=== PATIENT | male | born 1950 | race Caucasian/White ===

== ENCOUNTER 2023-07-02 20:30 | Inpatient (IN) | payer MEDICARE, BC, SELFPAY ==
[2023-07-02 15:57] VITALS: BP 137/82
--- NOTE | 2023-07-02 16:28 | ED.GENMED ---
History of Present Illness
General
Chief Complaint: Throat Problem
Time Seen by Provider: 07/02/23 16:28
Travel History
Have you had any contact with someone who has COVID-19?: No
Do you have any symptoms of coronavirus? Fever > 100 degrees, chills, cough, shortness of breath, sore throat, loss of taste or smell, muscle aches, or headache?: No
History of Present Illness
History of Present Illness:
HPI: Patient was eating a mandrin orange and feels that it got stuck. He has a history of esophageal cancer with gastric pull-through in 2010. He had chemo and radiation with anastomotic stricture. Today he continues to have trouble taking
anything orally. The daughter states that anytime the patient tried to take anything by mouth he seemed to be choking. He had been doing very poorly at home and came in here for further evaluation. Daughter tells me that in the past Dr. Jean
performed endoscopy on him.
EXAM:
GENERAL: The patient appears somewhat weak and debilitated
HEENT: Slightly dry oral mucosa
CARDIOVASCULAR: No murmurs, normal heart rate and rhythm, No chest wall tenderness
PULMONARY: No respiratory distress, breath sounds are clear and equal
ABDOMEN: Soft with no peritoneal signs, no tenderness
NEUROLOGIC: Excellent strength all extremities, no coordination deficits
PSYCHIATRIC: Appropriate mental status, normal insight and judgement
EXTREMITIES: Nontender, no edema, moves all extremities equally
SKIN: No rash, no lesions
TIME OF INITIAL ENCOUNTER: 4:30 PM
NUMBER AND COMPLEXITY OF PROBLEMS ADDRESSED AT THE ENCOUNTER
� Chronic conditions affecting care: Has had esophageal stricture/esophageal cancer with gastric pull-through
� Acute Exacerbation and/or Progression of Chronic Illness: This is an acute but recurring problem
� Differential Diagnosis includes: Esophageal stricture, esophageal food bolus
AMOUNT AND/OR COMPLEXITY OF DATA TO BE REVIEWED AND ANALYZED
� I performed an independent evaluation of and my interpretation is:
EKG:
CT:
X-rays:
Laboratory Studies: Other than mild anemia, chemistries and CBC are relatively unremarkable
Other:
� Review of other/old records: Endoscopy report from 02/18/2023�moderate stenosis was noted at that time and he was dilated (Dr. Jean)
� Clinical information was obtained by an independent historian: I spoke to the daughter at bedside
� Prescriptions/Medications Considered but not given:
� Further testing considered but not performed:
RISK OF COMPLICATIONS AND/OR MORBIDITY OR MORTALITY OF PATIENT MANAGEMENT
� Social determinants of health affecting care: Lives at home
� Discussion with other providers: I initially discussed case with Dr. Boykin, we tried glucagon as the patient was clearing his secretions however on reassessment he still was unable to tolerate even a small sip of water. He has
a sensation that was still getting stuck. Dr. Boykin recommends: Strict n.p.o., medical admission, and they would likely perform endoscopy in the morning. Hospitalist for admission at 7:15 PM.
� Escalation of care including admission/observation vs risk of discharge considered: The patient was given IV fluids for rehydration as he was for the most part kept NPO. With small trials of sips of water, he could not
tolerate these. Since he is clearing his secretions, will try glucagon but this did not help much.
Past History
Past History
ED Past Medical History: Cancer; Negative Fibromyalgia or Hypercholesterolemia
ED Past Surgical History: Other (Surgery for esophageal cancer); Negative Cardiac
Social History
Tobacco: Non-smoker
Alcohol: None
Drug: None
Personal:
Living: with family
Employment: Not employed
Family History
Family History: Hypertension
Phy Exam
Physical Exam
Physical Exam:
See HPI
Course
Orders/Labs/Results
Orders:
Orders
07/02/23 16:45
0.9% Sodium Chloride 500 ml [Nss] 500 ml IV BOLUS
Glucagon [GlucaGen] 1 mg IV NOW STA
Ondansetron Injectable [Zofran] 4 mg IV NOW STA
07/02/23 17:08
Basic Metabolic Panel Urgent
Complete Blood Count/With Diff Urgent
Abnormal Lab Results
07/02/23
17:08
RBC 3.72 L 10^6/uL
(4.70-6.10)
Hgb 11.3 L g/dL
(13.0-18.0)
Hct 33.1 L %
(39.0-52.0)
RDW 15.3 H %
(11.5-14.5)
Abs Immat Gran (auto) 0.1 H 10^3/uL
(0-0.05)
Absolute Neuts (auto) 8.7 H 10^3/uL
(1.4-6.5)
Absolute Lymphs (auto) 0.5 L 10^3/uL
(1.2-3.4)
Neutrophils % 87.7 H %
(42.2-75.2)
Lymphocytes % 4.9 L %
(20.5-51.1)
BUN 21 H mg/dl
(9-20)
Glucose 124 H mg/dl
(70-99)
07/02/23 17:08
07/02/23 17:08
Vital Signs
Initial and Last Documented VS:
Initial Vital Signs
Temp Pulse Resp BP Pulse Ox
97.9 F 89 18 137/82 93
07/02/23 15:57 07/02/23 15:57 07/02/23 15:57 07/02/23 15:57 07/02/23 15:57
Last Documented Vital Signs
Temp Pulse Resp BP Pulse Ox
97.9 F 68 16 149/76 96
07/02/23 15:57 07/02/23 17:42 07/02/23 17:42 07/02/23 17:42 07/02/23 17:42
*Critical Care Note
Total Time (30-74mins, 75-104mins- exclusive of procedures): Not Applicable
ED Attending Note
-
Portions of this chart may have been created with voice recognition software.� Occasional wrong word or��sound alike� substitutions may have occurred due to the inherent limitations of voice recognition software.
Discharge Plan
Departure
Patient Disposition: Admit
Date of Disposition: 07/02/23
Time of Disposition: 19:22
Presentation/result/management discussed w/ accepting MD/: Hospitalist
Discharge Problem:
Dysphagia
Prescriptions:
No Action
risperidone 0.5 mg Tablet
1 mg PO HS Qty: 0
cholecalciferol (vitamin D3) [Vitamin D3] 25 mcg (1,000 unit) Tablet
25 mcg PO DAILY
omeprazole 40 mg capsule,delayed release(DR/EC)
40 mg PO DAILY
sertraline 50 mg tablet
50 mg PO HS
Referrals:
Jammie Jean MD [Family Provider] -
Interventions
Interventions:
*Risk Screen - Suicide Last Done: 07/02/23 15:57
*General Assessment Last Done: 07/02/23 15:57
*Neglect/Abuse Screening Last Done: 07/02/23 15:57
ED- Fall Risk Assessment Last Done: 07/02/23 17:22
*ED COVID-19 Vaccine History Last Done: 07/02/23 17:22
ED-EENT Assessment Last Done: 07/02/23 17:21
ED- Pulmonary Assessment Last Done: 07/02/23 17:21
[2023-07-02] MEDS: GlucaGen 1 MG IV (17:08)
[2023-07-02] MEDS: ZOFRAN 4 MG IV (17:08)
[2023-07-02] MEDS: NSS 500 IV (17:09)
[2023-07-02 17:27] LABS: % Basophils 0.5 % (0-2); % Eosinophils 0.2 % (0-6); % Immature Granulocytes 0.5 % (0-0.5); % Lymphocytes 4.9 % (20.5-51.1); % Monocytes 6.2 % (1.7-9.3); % Neutrophils 87.7 % (42.2-75.2); Absolute Basophils 0.1 10^3/uL (0-0.2); Absolute Immature Granulocytes 0.1 10^3/uL (0-0.05); Absolute Lymphocytes 0.5 10^3/uL (1.2-3.4); Absolute Monocytes 0.6 10^3/uL (0.1-0.6); Absolute Neutrophils 8.7 10^3/uL (1.4-6.5); Hematocrit 33.1 % (39.0-52.0); Hemoglobin 11.3 g/dL (13.0-18.0); Mean Corp Hgb Conc. 34.1 g/dL (33.0-37.0); Mean Corpuscular Hgb 30.4 pg (27.0-31.0); Mean Platelet Volume 9.6 fL (7.4-10.4); Nucleated Red Blood Cells % 0 % (-); Platelet Count 246 10^3/uL (130-400); Red Blood Cell Count 3.72 10^6/uL (4.70-6.10); Red Cell Dist. Width 15.3 % (11.5-14.5); White Blood Cell Count 9.9 10^3/uL (4.8-10.8)
[2023-07-02 17:39] LABS: Blood Urea Nitrogen 21 mg/dl (9-20); Calcium 9.5 mg/dl (8.4-10.2); Carbon Dioxide 26 mmol/L (22-30); Chloride 103 mmol/L (98-107); Glucose 124 mg/dl (70-99); Potassium 3.9 mmol/L (3.5-5.1); Sodium 135 mmol/L (135-145); eGFR > 60.00
[2023-07-02 17:42] VITALS: BP 149/76
--- NOTE | 2023-07-02 19:54 | HPS.HSE ---
Addendum entered and electronically signed by Sang Khalil DO 07/02/23 20:55:
Patient seen and examined independently. Agree with findings and plan as set forth by Crista Candelario PA-C.
Patient is a 73y M with PMH significant for esophageal cancer s/p esophagectomy who presents to ED complaining of difficulty swallowing. Patient has prior history of stricture and dysphagia with food impaction requiring EGD / dilation / foreign
body retrieval. He states that he got a piece of orange stuck in his throat a few days ago. He did not eat or drink for about 24 hours and his discomfort gradually improved. Today he tried to eat a sandwich and noted significant increase in
discomfort and difficulty swallowing even oral secretions.
Patient presented to the ED for further evaluation. He was treated with glucagon and his symptoms have improved somewhat. He has no dyspnea / respiratory distress. He is now able to manage his own oral secretions.
Ass:
Dysphagia
Esophageal Stricture
Esophageal Cancer s/p Esophagectomy / Pull-Through
GERD
Colon Cancer
Renal Cell Cancer
Plan:
Admit for further evaluation and treatment.
Monitor overnight for any new / worsening symptoms.
NPO, IVFs, supportive care.
GI evaluation for EGD in the AM for possible foreign body removal +/- dilation if needed.
Original Note:
Family Physician
-
Family Physician: Jammie Tobar Do, MD
Chief Complaint
-
Difficulty Swallowing
History of Present Illness
Patient is a 73 y/o male with PMH of esophageal, colon, and renal cancer who presents to the ED today complaining of dysphagia. Patient says he ate an orange a few days ago and felt like 'it didn't go down'. He only drank water for 1-2 days, then
this morning he was able to get down coffee and then tried to eat a sandwich which he threw up. He admits to recent weight loss but is unsure how much he has lost. He says he had pneumonia 1.5 weeks ago and was treated with antibiotics. He denies
abdominal pain and hematemesis.
Medical History
Past Medical History
Past Medical History: Reports Other
Additional Past Medical History:
Esophageal Cancer
Esophageal Stricture
Colon Cancer
Renal Cell Carcinoma
Depression
Past Surgical History: Reports Other
Additional Past Surgical History:
Esophagectomy
Esophageal Dilation
Right Hemioclectomy
Right Nephrectomy
Hernia Repair
Social History
Tobacco: Non-smoker
Alcohol: None
Family History
Family History: Not pertinent
Allergies / Home Medications
Allergies reflects when Allergies were last updated in [facility].
Home Medications with original date entered in [facility]
Allergy/Medication List:
Allergies
Allergy/AdvReac Type Severity Reaction Status Date / Time
lactose [Lactose] Allergy INTOLERANT Verified 07/02/23 15:57
meperidine HCl [From Demerol] Allergy Swelling Verified 07/02/23 15:57
Home Medications
risperidone 0.5 mg tablet 1 mg PO HS ##0 10/20/11
cholecalciferol (vitamin D3) 25 mcg (1,000 unit) tablet (Vitamin D3) 25 mcg PO DAILY 04/25/22
omeprazole 40 mg capsule,delayed release 40 mg PO DAILY 07/02/23
sertraline 50 mg tablet 50 mg PO HS 07/02/23
Review of Systems
-
A 12 point ROS was completed and negative except as noted: Yes
Constitutional: Reports Weight Loss; Denies Fever or Chills
Respiratory: Denies Cough or Trouble Breathing
Cardiac: Denies Chest Pain or Palpitations
Abdomen/GI: Reports See HPI
Physical Exam
Vital Signs
Vital Signs
Temp Pulse Resp BP Pulse Ox
97.9 F 68 16 149/76 96
07/02/23 15:57 07/02/23 17:42 07/02/23 17:42 07/02/23 17:42 07/02/23 17:42
Physical Exam
General: Comfortable and Conversant
HEENT: NormoCephalic and Anicteric
Respiratory: Clear and Non Labored Respirations
Cardiac: S1/S2 and Regular Rhythm
GI: Soft and Non Tender
Rectal: Deferred by Provider
Musculoskeletal: No Clubbing, No Cyanosis and No Edema
Skin: Warm and Dry
Neuro: Awake, Alert, Oriented and Nonfocal/grossly intact
Psych: Calm
Laboratory Results
-
07/02/23 17:08
07/02/23 17:08
Data Reviewed
-
Lab Data: Labs Reviewed by me
Impression/Plan
-
Dysphagia, concern for recurrent Esophageal Stricture
-Consult GI
-Continue NPO/IVFs
-Plan for EGD in AM
GERD
-Continue Protonix
Depression
-Resume oral meds when able to take PO
Other Noted History
-Esophageal Cancer s/p Esophageal Resection with Gastric Pull Through and Chemo-XRT
-Colon Cancer s/p Right Hemicolectomy
-Renal Cell Carcinoma s/p Right Nephrectomy
DVT proph: SCDs
Code Status: Full Code
[2023-07-02] MEDS: NSS 1000 IV (21:40)
[2023-07-02 22:29] VITALS: BP 131/72
[2023-07-02 22:41] VITALS: BMI 17.6
[2023-07-03] VITALS (10 sets, daily range): BP systolic 131–155; BP diastolic 64–79
[2023-07-03 05:46] LABS: Hematocrit 32.3 % (39.0-52.0); Hemoglobin 10.6 g/dL (13.0-18.0); Mean Corp Hgb Conc. 32.8 g/dL (33.0-37.0); Mean Corpuscular Hgb 29.9 pg (27.0-31.0); Mean Platelet Volume 10.2 fL (7.4-10.4); Platelet Count 248 10^3/uL (130-400); Red Blood Cell Count 3.55 10^6/uL (4.70-6.10); Red Cell Dist. Width 15.2 % (11.5-14.5); White Blood Cell Count 11.8 10^3/uL (4.8-10.8)
[2023-07-03 06:07] LABS: Blood Urea Nitrogen 21 mg/dl (9-20); Calcium 9.4 mg/dl (8.4-10.2); Carbon Dioxide 25 mmol/L (22-30); Chloride 105 mmol/L (98-107); Estimated Creatinine Clearance 46 ml/min; Glucose 83 mg/dl (70-99); Magnesium 2.2 mg/dl (1.6-2.3); Potassium 4.4 mmol/L (3.5-5.1); Sodium 135 mmol/L (135-145); eGFR > 60.00
[2023-07-03 06:38] LABS: TSH Reflex To Free T4 1.56 uIU/ml (0.47-4.68)
--- NOTE | 2023-07-03 08:23 | CON.GI ---
Consultation
-
Date/Time Consultation Requested: 07/02/232107
Date/Time Consultation Performed: 07/03/23 0802
Requesting Provider: TARAS Hollins
Performing Provider: Dr. Boykin/HAMMAD Sheehan
Reason for Consultation: dysphagia
Medical History
Chief Complaint / HPI
Chief Complaint: dysphagia
History of Present Illness:
73yo M with a history of stage III esophageal cancer diagnosed 2010 s/p resection with gastric pull through s/p chemo/XRT, prior food impactions with removal, esophageal stenosis requiring dilatation and colon cancer s/p R hemicolectomy presents to
the ER with acute onset of dysphagia after eating mandarin orange, we are asked to evaluate for the same.� The patient states that yesterday he was eating a mandrin orange approximately mid afternoon and he states that after completion of this he
felt as if it did not go down completely. He states that he tried to drink some water and this would go down a little bit. A little bit later he ate a bite of a chicken farm sandwich and this promptly came up. He was able to tolerate his
secretions. He tried to drink some more liquids a little later however this promptly came up as well. He tried to take some medications which were antibiotics and those promptly came up as well. The patient was recently treated at [facility] for
pneumonia. The patient had a cough recently. He states that he is no longer coughing. He denies any recent fevers, chills, nausea, vomiting, melena, hematochezia, odynophagia, early satiety. He states he may have lost a little bit of weight but
has unsure of this. He follows with Dr. Bowling routinely for his history of cancer in the past. He states he is up-to-date for his routine exams. At the present time he is tolerating secretions and he is in no distress.�
Past Medical History
Past Medical History: Cancer (colon ca, stage 3 esophageal ca 2010 s/p resection, gastric pull-through status post chemo and radiation, colorectal cancer status post right hemicolectomy 2010, right renal cancer s/p resection)
Past Surgical History: Other (esophageal resection, R hemicolectomy, R renal CA resection)
Social History
Tobacco: Non-Smoker
Alcohol: None
Drug: None
Personal:
Living: With Family
Employment: Retired
Family History
Family History: Adopted
Allergies / Home Medications
Allergy/AdvReac Type Severity Reaction Status Date / Time
lactose [Lactose] Allergy INTOLERANT Verified 07/02/23 15:57
meperidine HCl [From Demerol] Allergy Swelling Verified 07/02/23 15:57
Medication Instructions Recorded
risperidone 0.5 mg tablet 1 mg PO HS ##0 10/20/11
cholecalciferol (vitamin D3) 25 25 mcg PO DAILY 04/25/22
mcg (1,000 unit) tablet (Vitamin
D3)
omeprazole 40 mg capsule,delayed 40 mg PO DAILY 07/02/23
release
sertraline 50 mg tablet 50 mg PO HS 07/02/23
Review of Systems
-
All other systems: A 12 pt ROS was Negative except as stated above in HPI
Vital Signs
Temp Pulse Resp BP Pulse Ox
97.9 F 65 16 131/72 98
07/02/23 15:57 07/02/23 22:30 07/02/23 22:30 07/02/23 22:29 07/02/23 22:30
Physical Exam
Exam
General: No Apparent Distress
HEENT: Anicteric and Other (tolerating secretions)
Respiratory: Rhonchi (B/L)
Cardiac: Regular Rhythm
GI: Soft, Non Tender, Non Distended and Normal Bowel Sounds
Musculoskeletal: No Edema
Skin: Warm and Dry
Neuro: AO x 3 (seems forgetful at times)
Psych: Calm
Results
WBC 11.8 10^3/uL (4.8-10.8) H 07/03/23 05:23
Hgb 10.6 g/dL (13.0-18.0) L 07/03/23 05:23
Hct 32.3 % (39.0-52.0) L 07/03/23 05:23
MCV 91.0 fL (80.0-94.0) 07/03/23 05:23
Plt Count 248 10^3/uL (130-400) 07/03/23 05:23
Absolute Neuts (auto) 8.7 10^3/uL (1.4-6.5) H 07/02/23 17:08
Sodium 135 mmol/L (135-145) 07/03/23 05:23
Potassium 4.4 mmol/L (3.5-5.1) 07/03/23 05:23
Chloride 105 mmol/L (98-107) 07/03/23 05:23
Carbon Dioxide 25 mmol/L (22-30) 07/03/23 05:23
BUN 21 mg/dl (9-20) H 07/03/23 05:23
Creatinine 1.1 mg/dL (0.7-1.3) 07/03/23 05:23
Calcium 9.4 mg/dl (8.4-10.2) 07/03/23 05:23
Diagnostic Image Results:
none
Prior GI Procedures:
EGD 02/18/23 �- Benign-appearing esophageal stenosis seen at 22cm
�� � � � � � � � � � � from incisors. Dilated to 12 and 13.5mm balloon.
�� � � � � � � � � � � - Esophageal diverticulum.
�� � � � � � � � � � � - Erythematous mucosa in the stomach. Biopsied.
�� � � � � � � � � � � - Normal examined duodenum.
EGD 09/19/22 (Do) - An esophago-gastric anastomosis was found. Dilated.
�� � � � � � � � � � � - Two large diverticulum at the esophageal anastomosis
�� � � � � � � � � � � with scant food residue retained.
�� � � � � � � � � � � - Erythematous mucosa in the stomach. Biopsied.
�� � � � � � � � � � � - Normal examined duodenum. Biopsied.
EGD 04/25/22 (Steve) - A mild esophago-gastric anastomotic stricture was
�� � � � � � � � � � � found. Dilated.
�� � � � � � � � � � � - Erythematous mucosa in the gastric body and antrum.
�� � � � � � � � � � � - A single duodenal polyp. Resected and retrieved.
�� � � � � � � � � � � Clip was placed. Clip vice president marketing & development: [employer].
�� � � � � � � � � � � - Mucosal resection was performed. Resection and
�� � � � � � � � � � � retrieval were complete.
EGD: 03/29/22 () �� - 2 large bilateral diverticulum in the distal
�� � � � � � � � � � � esophagus at 20cm from incisors.
�� � � � � � � � � � � - Esophageal stenosis at incisors. Dilated using TTS
�� � � � � � � � � � � dilator balloon 8-9-10mm. Biopsied.
�� � � � � � � � � � � - Smaller post surgical stomach seen.
�� � � � � � � � � � � - Erythematous mucosa in the stomach. Biopsied.
�� � � � � � � � � � � - A single 15mm duodenal polyp in duodenal bulb.
�� � � � � � � � � � � Biopsied.
�� � � � � � � � � � � - Scalloped mucosa was found in the duodenum,
�� � � � � � � � � � � suspicious for celiac disease. Biopsied.
colonoscopy performed in July of 2018, which
per patient, was normal without signs of cancer recurrence. This
report is not available for my review at this time. (Per Dr. Jean note)
2015, he had an EGD by Dr. Christine, which showed a benign appearing
esophageal stricture at 25-24 cm from the incisors. There was a
diverticulum on each side of the anastomosis. Through the scope
dilation was done 12-13.5 to 15 mm of the anastomotic stricture.
�[address] Yane jimenez colon prep, colonic anastomosis normal appearing
Assessment / Plan
-
73yo M with a history of stage III esophageal cancer diagnosed 2010 s/p resection with gastric pull through s/p chemo/XRT, prior food impactions with removal, esophageal stenosis requiring dilatation and colon cancer s/p R hemicolectomy presents to
the ER with acute onset of dysphagia after eating mandarin orange, we are asked to evaluate for the same.
Impression:
Dysphagia, likely secondary to food impaction from mandrin orange
Esophageal stenosis with last EGD in01/2023 showing benign appearing stenosis at 22 cmfrom incisors. Dilated to 12 and 13.5mm balloon as well as Esophageal diverticulum
Recent pneumonia, with current rhonchi bilaterally, patient without any current distress or need for oxygen, O2 sat 98% with respirations at 16
Plan:
-Obtain chest x-ray
-Plan on EGD today
-Continue pantoprazole IV
-Continue IV fluids as patient n.p.o.
-Further recommendations to be forthcoming
Data Reviewed
-
Old Records: Reviewed
-
-
Thank you for consultation and allowing me to participate in the patient's care. Please call the urology surgeon GI physician during the after hours with any questions or concerns.
[2023-07-03] MEDS: NSS (PRESERVATIVE FREE) 10 ML IV (08:32)
[2023-07-03] MEDS: PROTONIX IV 40 MG IV (08:33)
[2023-07-03] MEDS: DUONEB 3 ML INH (08:39)
[2023-07-03] MEDS: NSS 1000 IV (12:51)
--- NOTE | 2023-07-03 13:15 | SUR.PHASEI ---
patient comfortable, alert in pacu - seems slow to comprehend, Dr Boykin visits and explains plan of care, - Daughter called at patient's request and updated on status and room number
--- NOTE | 2023-07-03 13:33 | W.PN.HOSP.TC ---
Today's Communication/Plan
-
Monitor vital signs see plan
EGD today
Assessment / Plan
Assessment / Plan
General: Comfortable and Conversant
HEENT: NormoCephalic and Anicteric
Respiratory: Clear and Non Labored Respirations
Cardiac: S1/S2 and Regular Rhythm
GI: Soft and Non Tender
Musculoskeletal: No Edema
Neuro: Awake, Alert, Oriented and Nonfocal/grossly intact
Psych: Calm
Dysphagia, concern for recurrent Esophageal Stricture
-GI following, EGD today
monitor leukocytosis
GERD
-Continue Protonix
Depression
-Resume oral meds when able to take PO
Other Noted History
-Esophageal Cancer s/p Esophageal Resection with Gastric Pull Through and Chemo-XRT
-Colon Cancer s/p Right Hemicolectomy
-Renal Cell Carcinoma s/p Right Nephrectomy
DVT proph: SCDs
Code Status: Full Code
Anticipated Discharge: Within 24 hours
Subjective/Interval History
-
Date of Service: July 03, 2023
denies pain
Objective Data
-
Labs:
Laboratory Results
07/03/23
05:23
WBC 11.8 H
Hgb 10.6 L
Hct 32.3 L
Plt Count 248
Sodium 135
Potassium 4.4
Chloride 105
Carbon Dioxide 25
BUN 21 H
Creatinine 1.1
Glucose 83
Calcium 9.4
Vital Signs:
Vital Signs
Temp Pulse Resp BP Pulse Ox
98.8 F 66 26 137/68 97
07/03/23 13:00 07/03/23 13:00 07/03/23 13:00 07/03/23 13:00 07/03/23 13:00
I&O
07/02/23 07/03/2324
06:59 06:59 06:59
Intake Total 100 / 100
Balance 100 / 100
--- NOTE | 2023-07-03 13:36 | SUR.PHASEI ---
discharge to [address], patient able to walk from stretcher to bed with minimal assistance, steady gait. continues with harsh nonproductive loose cough. still in clothes from home, patient belonging bag in room from ED. Daughter - Johanna updated
by phone.
[2023-07-03] MEDS: RISPERDAL 1 MG PO (20:59)
[2023-07-03] MEDS: ZOLOFT 50 MG PO (20:59)
[2023-07-04] MEDS: NSS IV (02:50)
[2023-07-04 07:00] VITALS: BP 146/78
[2023-07-04 07:21] LABS: % Basophils 0.7 % (0-2); % Eosinophils 1.8 % (0-6); % Immature Granulocytes 0.8 % (0-0.5); % Lymphocytes 9.4 % (20.5-51.1); % Neutrophils 79.3 % (42.2-75.2); Absolute Basophils 0.1 10^3/uL (0-0.2); Absolute Eosinophils 0.1 10^3/uL (0-0.7); Absolute Immature Granulocytes 0.1 10^3/uL (0-0.05); Absolute Lymphocytes 0.7 10^3/uL (1.2-3.4); Absolute Monocytes 0.6 10^3/uL (0.1-0.6); Absolute Neutrophils 5.9 10^3/uL (1.4-6.5); Hematocrit 31.1 % (39.0-52.0); Hemoglobin 10.5 g/dL (13.0-18.0); Mean Corp Hgb Conc. 33.8 g/dL (33.0-37.0); Mean Corpuscular Volume 88.9 fL (80.0-94.0); Mean Platelet Volume 10.7 fL (7.4-10.4); Nucleated Red Blood Cells % 0 % (-); Platelet Count 242 10^3/uL (130-400); Red Cell Dist. Width 15.1 % (11.5-14.5); White Blood Cell Count 7.4 10^3/uL (4.8-10.8)
[2023-07-04 07:34] LABS: Blood Urea Nitrogen 14 mg/dl (9-20); Calcium 8.6 mg/dl (8.4-10.2); Carbon Dioxide 23 mmol/L (22-30); Chloride 108 mmol/L (98-107); Estimated Creatinine Clearance 50 ml/min; Glucose 85 mg/dl (70-99); Potassium 3.9 mmol/L (3.5-5.1); Sodium 133 mmol/L (135-145); eGFR > 60.00
[2023-07-04] MEDS: VITAMIN D3 (cholecalciferol) 25 MCG PO (07:56)
[2023-07-04] MEDS: PROTONIX IV 40 MG IV (07:56)
[2023-07-04] MEDS: NSS (PRESERVATIVE FREE) 10 ML IV (07:57)
--- NOTE | 2023-07-04 09:58 | W.PN.HOSP.TC ---
Today's Communication/Plan
-
Monitor vital signs see plan
Discharge today
do not eat roughage-fibrous foods will likely get stuck at the anastomosis site. Eat majority liquids and soft foods
Time of discharge 36 minutes
Assessment / Plan
Assessment / Plan
General: Comfortable and Conversant
HEENT: NormoCephalic and Anicteric
Respiratory: Clear and Non Labored Respirations
Cardiac: S1/S2 and Regular Rhythm
GI: Soft and Non Tender
Musculoskeletal: No Edema
Neuro: Awake, Alert, Oriented and Nonfocal/grossly intact
Psych: Calm
Dysphagia, concern for recurrent Esophageal Stricture
-GI following, EGD 07/02 with food in the upper third of the esophagus nearly inside the diverticulum and impacted at the anastomosis site. Status post food disimpaction. Status post dilation esophageal gastric anastomosis. Started on liquid diet
per GI. Per GI do not eat roughage-fibrous foods will likely get stuck at the anastomosis site. Eat majority liquids and soft foods, follow-up with GI outpatient
monitor leukocytosis
Mild hyponatremia
Monitor
GERD
-Continue Protonix
Depression
-Resume oral meds
Other Noted History
-Esophageal Cancer s/p Esophageal Resection with Gastric Pull Through and Chemo-XRT
-Colon Cancer s/p Right Hemicolectomy
-Renal Cell Carcinoma s/p Right Nephrectomy
DVT proph: SCDs
Code Status: Full Code
Anticipated Discharge: Today
Subjective/Interval History
-
Date of Service: July 04, 2023
Denies pain
Objective Data
-
Labs:
Laboratory Results
07/04/23
06:25
WBC 7.4
Hgb 10.5 L
Hct 31.1 L
Plt Count 242
Sodium 133 L
Potassium 3.9
Chloride 108 H
Carbon Dioxide 23
BUN 14
Creatinine 1.0
Glucose 85
Calcium 8.6
Vital Signs:
Vital Signs
Temp Pulse Resp BP Pulse Ox
97.9 F 60 16 146/78 98
07/04/23 07:00 07/04/23 07:00 07/04/23 07:00 07/04/23 07:00 07/04/23 07:00
I&O
07/03/23 07/04/23 07/05/23
06:59 06:59 06:59
Intake Total 300 / 300
Balance 300 / 300
--- NOTE | 2023-07-04 10:02 | W.DCSUMMARY ---
Discharge Summary
Discharge Data
Date of Admission: 07/02/23
Date of Discharge: 07/04/23
-
Pending Results: No
Hospital Course
73-year-old male with past medical history of esophageal stricture, GERD, depression, esophageal cancer status post esophageal resection, colon cancer, renal cell carcinoma came to the hospital with dysphagia with food impaction. Patient underwent
EGD for disimpaction. Patient also had dilation of the esophageal gastric anastomosis. GI recommended patient to continue with liquid diet and to avoid roughage-fibrous foods. GI recommended patient to follow-up with them outpatient. Once
patient was able to tolerate diet and was feeling better, he was then discharged home with instructions to follow-up with all his physicians outpatient.
Discharge Plan
-
Patient Disposition: Home (Routine Discharge)
Discharge Diagnosis/Procedures: Food impaction in esophagus status post dilation of anastomosis site
Mild hyponatremia
Diet: Other diet
Additional Diets: do not eat roughage-fibrous foods will likely get stuck at the anastomosis site. Eat majority liquids and soft foods
Activity: As tolerated
Driving Restrictions: As prior to admission
Bathing Restrictions: None
Activity Restrictions/Additional Instructions:
Follow-up with your primary care provider within a week outpatient
Referrals:
Jammie Jean MD [Family Provider] - 09/03/23 11:30 am
Prescriptions:
Continued
risperidone 0.5 mg Tablet
1 mg PO HS Qty: 0
cholecalciferol (vitamin D3) [Vitamin D3] 25 mcg (1,000 unit) Tablet
25 mcg PO DAILY
omeprazole 40 mg capsule,delayed release(DR/EC)
40 mg PO DAILY
sertraline 50 mg tablet
50 mg PO HS
Discharge Orders:
Discharge Patient (As Directed); Ordered 07/04/23
Ordered By: Nahid Abdalla
Discharge Date and Time
Discharge Date/Time: 07/04/23 13:40
[2023-07-04 14:00] VITALS: BP 100/66
== END 2023-07-04 13:40 | disposition home or self-care (01) | DRG 394 ==
LOC: 3 WEST ACU 20:30
PROVIDERS: Physician Assistant Medical; ADMITTING PHYSICIAN Hospitalist; ATTENDING PHYSICIAN Internal Medicine; CONSULT PHYSICIAN Internal Medicine; EMERGENCY PHYSICIAN Emergency Medicine; FAMILY PHYSICIAN Internal Medicine Gastroenterology
PROC: 0D758ZZ Dilation of Esophagus, Via Natural or Artificial Opening Endoscopic (ICD-10-PCS; 2023-07-03)
DX: T18.128A Food in esophagus causing other injury, initial encounter (principal); C15.9 Malignant neoplasm of esophagus, unspecified; Q39.6 Congenital diverticulum of esophagus; E87.1 Hypo-osmolality and hyponatremia; K22.2 Esophageal obstruction; K21.9 Gastro-esophageal reflux disease without esophagitis; F32.A Depression, unspecified; W44.F3XA Food entering into or through a natural orifice, initial encounter
CPT/HCPCS: 71046; 80048; 83735; 84443; 85025; 85027; 96361; 96374; 96375; 99284; C1726; J1610

== ENCOUNTER → 2023-07-14 10:02 | Outpatient (REF) | payer MEDICARE, BC, SELFPAY ==
[2023-07-14 10:56] LABS: % Basophils 1.3 % (0-2); % Immature Granulocytes 0.5 % (0-0.5); % Lymphocytes 15.9 % (20.5-51.1); % Neutrophils 75.3 % (42.2-75.2); Absolute Basophils 0.1 10^3/uL (0-0.2); Absolute Eosinophils 0.1 10^3/uL (0-0.7); Absolute Lymphocytes 0.9 10^3/uL (1.2-3.4); Absolute Monocytes 0.3 10^3/uL (0.1-0.6); Absolute Neutrophils 4.2 10^3/uL (1.4-6.5); Hematocrit 37.1 % (39.0-52.0); Hemoglobin 11.8 g/dL (13.0-18.0); Mean Corp Hgb Conc. 31.8 g/dL (33.0-37.0); Mean Corpuscular Hgb 29.4 pg (27.0-31.0); Mean Corpuscular Volume 92.5 fL (80.0-94.0); Nucleated Red Blood Cells % 0 % (-); Platelet Count 313 10^3/uL (130-400); Red Blood Cell Count 4.01 10^6/uL (4.70-6.10); Red Cell Dist. Width 15.3 % (11.5-14.5); White Blood Cell Count 5.6 10^3/uL (4.8-10.8)
[2023-07-14 12:27] LABS: ALT (SGPT) 14 U/L (0-50); AST (SGOT) 20 U/L (17-59); Albumin 3.1 g/dl (3.5-5.0); Alkaline Phosphatase 120 U/L (38-126); Blood Urea Nitrogen 11 mg/dl (9-20); Calcium 9.6 mg/dl (8.4-10.2); Carbon Dioxide 26 mmol/L (22-30); Chloride 103 mmol/L (98-107); Glucose 99 mg/dl (70-99); Potassium 4.1 mmol/L (3.5-5.1); Sodium 135 mmol/L (135-145); Total Bilirubin 1.2 mg/dl (0.2-1.3); Total Protein 5.9 g/dl (6.3-8.2); eGFR 58.01
== END ==
LOC: REG 10:02
PROVIDERS: ATTENDING PHYSICIAN Internal Medicine Hematology & Oncology; FAMILY PHYSICIAN Family Medicine
DX: C18.0 Malignant neoplasm of cecum (principal); C15.5 Malignant neoplasm of lower third of esophagus; D50.0 Iron deficiency anemia secondary to blood loss (chronic); R91.1 Solitary pulmonary nodule
CPT/HCPCS: 36415; 80053; 85025

== ENCOUNTER → 2023-07-17 12:39 | Outpatient (REF) | payer MEDICARE, BC, SELFPAY | LOC: RAD 12:39 | PROVIDERS: ATTENDING PHYSICIAN Internal Medicine Hematology & Oncology | DX: C15.9 Malignant neoplasm of esophagus, unspecified (principal); C64.9 Malignant neoplasm of unspecified kidney, except renal pelvis; C18.9 Malignant neoplasm of colon, unspecified; C18.0 Malignant neoplasm of cecum; C15.5 Malignant neoplasm of lower third of esophagus; D50.0 Iron deficiency anemia secondary to blood loss (chronic); R91.1 Solitary pulmonary nodule | CPT/HCPCS: 71260; 74177; Q9967 ==

== ENCOUNTER → 2023-10-20 13:15 | Outpatient (REF) | payer MEDICARE, BC, SELFPAY ==
[2023-10-20 13:45] LABS: % Basophils 1.1 % (0-2); % Eosinophils 1.2 % (0-6); % Immature Granulocytes 0.5 % (0-0.5); % Lymphocytes 12.6 % (20.5-51.1); % Monocytes 6.4 % (1.7-9.3); % Neutrophils 78.2 % (42.2-75.2); Absolute Basophils 0.1 10^3/uL (0-0.2); Absolute Eosinophils 0.1 10^3/uL (0-0.7); Absolute Lymphocytes 0.8 10^3/uL (1.2-3.4); Absolute Monocytes 0.4 10^3/uL (0.1-0.6); Hematocrit 34.6 % (39.0-52.0); Hemoglobin 11.2 g/dL (13.0-18.0); Mean Corp Hgb Conc. 32.4 g/dL (33.0-37.0); Mean Corpuscular Hgb 28.6 pg (27.0-31.0); Mean Corpuscular Volume 88.3 fL (80.0-94.0); Mean Platelet Volume 9.8 fL (7.4-10.4); Nucleated Red Blood Cells % 0 % (-); Platelet Count 307 10^3/uL (130-400); Red Blood Cell Count 3.92 10^6/uL (4.70-6.10); Red Cell Dist. Width 16.4 % (11.5-14.5); White Blood Cell Count 6.4 10^3/uL (4.8-10.8)
[2023-10-20 14:10] LABS: Iron 52 ug/dl (49-181)
[2023-10-20 14:19] LABS: Percent Saturation 14 % (20-50); Total Iron Binding Capacity 368 ug/dl (261-462)
[2023-10-20 14:45] LABS: Ferritin 14.8 ng/ml (17.9-464.0)
[2023-10-20 15:16] LABS: Folate 4.5 ng/ml (2.76-20); Vitamin B12 396 pg/ml (239-931)
== END ==
LOC: REG 13:15
PROVIDERS: ATTENDING PHYSICIAN Internal Medicine Hematology & Oncology; FAMILY PHYSICIAN Family Medicine
DX: C18.0 Malignant neoplasm of cecum (principal); C15.5 Malignant neoplasm of lower third of esophagus; D50.0 Iron deficiency anemia secondary to blood loss (chronic); R91.1 Solitary pulmonary nodule; Z79.899 Other long term (current) drug therapy
CPT/HCPCS: 36415; 82607; 82728; 82746; 83540; 83550; 85025

== ENCOUNTER → 2023-10-29 06:39 | Day surgery (SDC) | payer MEDICARE, BC, SELFPAY | LOC: GI 06:39 | PROVIDERS: ATTENDING PHYSICIAN Internal Medicine Gastroenterology | DX: R13.10 Dysphagia, unspecified (principal); R12 Heartburn; Z98.0 Intestinal bypass and anastomosis status; K22.2 Esophageal obstruction | CPT/HCPCS: 43249 ==

== ENCOUNTER → 2023-11-03 15:50 | Outpatient (REF) | payer MEDICARE, BC, SELFPAY ==
[2023-11-03 11:49] LABS: % Basophils 0.6 % (0-2); % Eosinophils 0.7 % (0-6); % Immature Granulocytes 0.5 % (0-0.5); % Lymphocytes 10.2 % (20.5-51.1); % Monocytes 6.4 % (1.7-9.3); % Neutrophils 81.6 % (42.2-75.2); Absolute Basophils 0.1 10^3/uL (0-0.2); Absolute Eosinophils 0.1 10^3/uL (0-0.7); Absolute Lymphocytes 0.8 10^3/uL (1.2-3.4); Absolute Monocytes 0.5 10^3/uL (0.1-0.6); Absolute Neutrophils 6.6 10^3/uL (1.4-6.5); Hematocrit 33.6 % (39.0-52.0); Hemoglobin 11.2 g/dL (13.0-18.0); Mean Corp Hgb Conc. 33.3 g/dL (33.0-37.0); Mean Corpuscular Hgb 28.7 pg (27.0-31.0); Mean Corpuscular Volume 86.2 fL (80.0-94.0); Mean Platelet Volume 9.7 fL (7.4-10.4); Nucleated Red Blood Cells % 0 % (-); Platelet Count 295 10^3/uL (130-400); Red Cell Dist. Width 16.7 % (11.5-14.5); White Blood Cell Count 8.1 10^3/uL (4.8-10.8)
[2023-11-03 14:36] LABS: Phosphorus 2.4 mg/dl (2.5-4.5)
== END ==
LOC: OIDL 15:50
PROVIDERS: ATTENDING PHYSICIAN Internal Medicine Hematology & Oncology
DX: C18.0 Malignant neoplasm of cecum (principal)
CPT/HCPCS: 84100; 85025

== ENCOUNTER → 2023-11-17 15:59 | Outpatient (REF) | payer MEDICARE, BC, SELFPAY ==
[2023-11-17 11:55] LABS: % Eosinophils 1.4 % (0-6); % Immature Granulocytes 0.8 % (0-0.5); % Lymphocytes 14.6 % (20.5-51.1); % Monocytes 7.7 % (1.7-9.3); % Neutrophils 74.5 % (42.2-75.2); Absolute Basophils 0.1 10^3/uL (0-0.2); Absolute Eosinophils 0.1 10^3/uL (0-0.7); Absolute Immature Granulocytes 0.1 10^3/uL (0-0.05); Absolute Lymphocytes 0.9 10^3/uL (1.2-3.4); Absolute Monocytes 0.5 10^3/uL (0.1-0.6); Absolute Neutrophils 4.7 10^3/uL (1.4-6.5); Hematocrit 31.4 % (39.0-52.0); Hemoglobin 10.4 g/dL (13.0-18.0); Mean Corp Hgb Conc. 33.1 g/dL (33.0-37.0); Mean Corpuscular Hgb 28.9 pg (27.0-31.0); Mean Corpuscular Volume 87.2 fL (80.0-94.0); Mean Platelet Volume 9.7 fL (7.4-10.4); Nucleated Red Blood Cells % 0 % (-); Platelet Count 296 10^3/uL (130-400); Red Cell Dist. Width 17.2 % (11.5-14.5); White Blood Cell Count 6.2 10^3/uL (4.8-10.8)
[2023-11-17 12:08] LABS: Phosphorus 1.7 mg/dl (2.5-4.5)
== END ==
LOC: OIDL 15:59
PROVIDERS: ATTENDING PHYSICIAN Internal Medicine Hematology & Oncology
DX: C18.0 Malignant neoplasm of cecum (principal)
CPT/HCPCS: 84100; 85025

== ENCOUNTER → 2023-11-27 06:16 | Day surgery (SDC) | payer MEDICARE, BC, SELFPAY | LOC: GI 06:16 | PROVIDERS: ATTENDING PHYSICIAN Internal Medicine Gastroenterology | DX: Z12.11 Encounter for screening for malignant neoplasm of colon (principal); D12.6 Benign neoplasm of colon, unspecified; D49.0 Neoplasm of unspecified behavior of digestive system; K57.30 Diverticulosis of large intestine without perforation or abscess without bleeding; K56.690 Other partial intestinal obstruction; K64.8 Other hemorrhoids; Z85.038 Personal history of other malignant neoplasm of large intestine; Z98.0 Intestinal bypass and anastomosis status | CPT/HCPCS: 45380; 45381; 88305 ==

== ENCOUNTER → 2023-12-05 13:37 | Outpatient (REF) | payer MEDICARE, BC, SELFPAY ==
[2023-12-05 14:40] LABS: % Basophils 0.8 % (0-2); % Eosinophils 0.9 % (0-6); % Immature Granulocytes 0.7 % (0-0.5); % Lymphocytes 8.9 % (20.5-51.1); % Monocytes 4.8 % (1.7-9.3); % Neutrophils 83.9 % (42.2-75.2); Absolute Basophils 0.1 10^3/uL (0-0.2); Absolute Eosinophils 0.1 10^3/uL (0-0.7); Absolute Immature Granulocytes 0.1 10^3/uL (0-0.05); Absolute Lymphocytes 0.8 10^3/uL (1.2-3.4); Absolute Monocytes 0.4 10^3/uL (0.1-0.6); Absolute Neutrophils 7.4 10^3/uL (1.4-6.5); Hematocrit 33.9 % (39.0-52.0); Mean Corp Hgb Conc. 32.4 g/dL (33.0-37.0); Mean Corpuscular Hgb 28.9 pg (27.0-31.0); Mean Platelet Volume 9.6 fL (7.4-10.4); Nucleated Red Blood Cells % 0 % (-); Platelet Count 304 10^3/uL (130-400); Red Blood Cell Count 3.81 10^6/uL (4.70-6.10); Red Cell Dist. Width 17.7 % (11.5-14.5); White Blood Cell Count 8.9 10^3/uL (4.8-10.8)
[2023-12-05 15:06] LABS: Iron 67 ug/dl (49-181)
[2023-12-05 15:15] LABS: Percent Saturation 29 % (20-50); Total Iron Binding Capacity 231 ug/dl (261-462)
[2023-12-05 15:38] LABS: CEA 3.71 ng/ml
[2023-12-08 01:10] LABS: Transferrin 188 mg/dL (200-360)
== END ==
LOC: REG 13:37
PROVIDERS: ATTENDING PHYSICIAN Internal Medicine Gastroenterology; FAMILY PHYSICIAN Family Medicine
DX: Z85.038 Personal history of other malignant neoplasm of large intestine (principal); D41.01 Neoplasm of uncertain behavior of right kidney
CPT/HCPCS: 36415; 82378; 82728; 83540; 83550; 84466; 85025

== ENCOUNTER → 2023-12-16 11:10 | Outpatient (REF) | payer MEDICARE, BC, SELFPAY ==
[2023-12-16 15:11] LABS: Blood Urea Nitrogen 20 mg/dl (9-20)
== END ==
LOC: REG 11:10
PROVIDERS: ATTENDING PHYSICIAN Internal Medicine Gastroenterology; FAMILY PHYSICIAN Family Medicine
DX: K63.89 Other specified diseases of intestine (principal)
CPT/HCPCS: 36415; 82565; 84520

== ENCOUNTER → 2023-12-17 09:25 | Outpatient (REF) | payer MEDICARE, BC, SELFPAY | LOC: RAD 09:25 | PROVIDERS: ATTENDING PHYSICIAN Internal Medicine Gastroenterology; FAMILY PHYSICIAN Family Medicine; REFERRING PHYSICIAN Internal Medicine Hematology & Oncology | DX: K63.89 Other specified diseases of intestine (principal); Z85.038 Personal history of other malignant neoplasm of large intestine | CPT/HCPCS: 71260; 74177; Q9967 ==

== ENCOUNTER 2024-01-14 06:17 | Day surgery (SDC) | payer MEDICARE, BC, SELFPAY ==
[2024-01-14 08:37] VITALS: BMI 17.1
[2024-01-14 08:38] VITALS: BMI 17.1
[2024-01-14 08:39] VITALS: BP 158/88
[2024-01-14 11:01] VITALS: BP 132/91
[2024-01-14 11:30] VITALS: BP 146/86
== END 2024-01-14 11:50 | disposition home or self-care (01) ==
LOC: SDS 06:17
PROVIDERS: ATTENDING PHYSICIAN Internal Medicine Gastroenterology
DX: D12.3 Benign neoplasm of transverse colon (principal); K64.0 First degree hemorrhoids; K57.30 Diverticulosis of large intestine without perforation or abscess without bleeding; K22.2 Esophageal obstruction; Q39.6 Congenital diverticulum of esophagus; Q40.2 Other specified congenital malformations of stomach; K31.89 Other diseases of stomach and duodenum; R13.10 Dysphagia, unspecified; Z85.01 Personal history of malignant neoplasm of esophagus; Z98.0 Intestinal bypass and anastomosis status
CPT/HCPCS: 45390; 43249; 43239; 43236; 88305; C1726

== ENCOUNTER → 2024-03-09 13:15 | Outpatient (REF) | payer MEDICARE, BC, SELFPAY ==
[2024-03-09 13:51] LABS: % Basophils 0.9 % (0-2); % Eosinophils 1.7 % (0-6); % Immature Granulocytes 0.5 % (0-0.5); % Lymphocytes 13.2 % (20.5-51.1); % Monocytes 5.6 % (1.7-9.3); % Neutrophils 78.1 % (42.2-75.2); Absolute Basophils 0.1 10^3/uL (0-0.2); Absolute Eosinophils 0.1 10^3/uL (0-0.7); Absolute Lymphocytes 0.9 10^3/uL (1.2-3.4); Absolute Monocytes 0.4 10^3/uL (0.1-0.6); Hematocrit 36.2 % (39.0-52.0); Hemoglobin 11.5 g/dL (13.0-18.0); Mean Corp Hgb Conc. 31.8 g/dL (33.0-37.0); Mean Corpuscular Hgb 30.7 pg (27.0-31.0); Mean Corpuscular Volume 96.8 fL (80.0-94.0); Mean Platelet Volume 10.1 fL (7.4-10.4); Nucleated Red Blood Cells % 0 % (-); Platelet Count 317 10^3/uL (130-400); Red Blood Cell Count 3.74 10^6/uL (4.70-6.10); Red Cell Dist. Width 15.6 % (11.5-14.5); White Blood Cell Count 6.4 10^3/uL (4.8-10.8)
[2024-03-09 14:21] LABS: Iron 84 ug/dl (49-181)
[2024-03-09 14:30] LABS: Percent Saturation 30 % (20-50); Total Iron Binding Capacity 272 ug/dl (261-462)
== END ==
LOC: REG 13:15
PROVIDERS: ATTENDING PHYSICIAN Internal Medicine Hematology & Oncology; FAMILY PHYSICIAN Family Medicine
DX: C18.0 Malignant neoplasm of cecum (principal); C15.5 Malignant neoplasm of lower third of esophagus; D50.0 Iron deficiency anemia secondary to blood loss (chronic); R91.1 Solitary pulmonary nodule
CPT/HCPCS: 36415; 82728; 83540; 83550; 85025

== ENCOUNTER 2024-06-22 06:06 | Day surgery (SDC) | payer MEDICARE, BC, SELFPAY ==
[2024-06-22 07:38] VITALS: BMI 12.3
[2024-06-22 07:40] VITALS: BMI 12.3
[2024-06-22 07:41] VITALS: BP 172/87
[2024-06-22 09:30] VITALS: BP 143/80
[2024-06-22 09:45] VITALS: BP 177/80
[2024-06-22 10:01] VITALS: BP 169/99
== END 2024-06-22 10:15 | disposition home or self-care (01) ==
LOC: SDS 06:06
PROVIDERS: ATTENDING PHYSICIAN Internal Medicine Gastroenterology
DX: Z12.11 Encounter for screening for malignant neoplasm of colon (principal); K63.5 Polyp of colon; K57.30 Diverticulosis of large intestine without perforation or abscess without bleeding; K64.0 First degree hemorrhoids; Z86.0101 Personal history of adenomatous and serrated colon polyps; Z98.0 Intestinal bypass and anastomosis status; Z98.890 Other specified postprocedural states
CPT/HCPCS: 45380; 88305

== ENCOUNTER 2024-09-03 14:54 | Day surgery (SDC) | payer SELFPAY ==
[2024-09-03] VITALS (8 sets, daily range): BP systolic 134–159; BP diastolic 63–80; BMI 20.7
== END 2024-09-03 16:45 | disposition short-term general hospital (02) ==
LOC: SDS 14:54
PROVIDERS: ATTENDING PHYSICIAN Internal Medicine Gastroenterology
DX: K22.2 Esophageal obstruction (principal); K63.89 Other specified diseases of intestine; Z98.890 Other specified postprocedural states; Q39.6 Congenital diverticulum of esophagus
CPT/HCPCS: 43249; C1726